=== PATIENT | male | born 1995 | race American Indian/Alaskan Native ===

== ENCOUNTER 2017-02-26 14:24 | Emergency (ER) | payer OTHER ==
[2017-02-26 14:36] VITALS: BP 121/75
[2017-02-26] MEDS ORDERED: MOTRIN PO ONE (16:05)
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
== END 2017-02-26 16:22 | disposition home or self-care (01) ==
LOC: ED 14:24
DX: S13.4XXA Sprain of ligaments of cervical spine, initial encounter (principal); V49.49XA Driver injured in collision with other motor vehicles in traffic accident, initial encounter; Y93.89 Activity, other specified; Y92.89 Other specified places as the place of occurrence of the external cause; Y99.8 Other external cause status
CPT/HCPCS: 99282